=== PATIENT | female | born 1955 | race Caucasian/White ===

== ENCOUNTER 2020-07-06 07:20 | Day surgery (SDC) | payer MEDICAID, SELFPAY ==
[~2020-07-06] VITALS: Ht 152.4 cm; Wt 42.6 kg
[2020-07-06] MEDS: MIDAZOLAM HCL 5 MG/5 ML VIAL ONE ×4 (09:32→09:52)
[2020-07-06] MEDS: MEPERIDINE 100 MG INJ. 100 MG/ML VIAL ONE ×2 (09:33→09:35)
[2020-07-06 15:15] VITALS: BP_SYST 110
== END 2020-07-06 11:15 | disposition home or self-care (01) ==
LOC: SDS 07:20 → SMU 07:20 → SDS 11:15
PROVIDERS: ATTEND Internal Medicine Gastroenterology
DX: R13.10 Dysphagia, unspecified (principal); K22.2 Esophageal obstruction; K44.9 Diaphragmatic hernia without obstruction or gangrene; A04.8 Other specified bacterial intestinal infections; Z20.828 Contact with and (suspected) exposure to other viral communicable diseases
CPT/HCPCS: 36415; 43239; 43248; 87081; 88305; 88312; 88313; 99152; G0378; J2175; J2250; J7030; U0003